=== PATIENT | male | born 1990 | race Caucasian/White ===

== ENCOUNTER 2023-01-15 19:45 | Emergency (ER) | payer SELFPAY ==
--- NOTE | 2023-01-15 20:14 | ERPHSYRPT ---
- History of Present Illness Time Seen by Provider: 01/15/23 20:14 Source: patient, police Exam Limitations: intoxication Patient Subjective Stated Complaint: pt arrived per ems. was found rolling around on the floor at [facility] and ems was called. pt denies seizure activity. denies loc. told ems that he had used meth approx 6 hours ago. told this nurse that he last used meth yesterday. Triage Nursing Assessment: pt alert and oriented x4. pt arrives per ambulance, ambulates from ems cot into room with steady gait noted. respirations nonlabored . pupils equal and reactive. pt moves all extremities without diff. pt restless in room, moving all over bed. Physician History: Patient brought in by police after having an episode in [facility] of shaking. He reported taking an unknown substance earlier that day. Patient reports having a seizure, but he remembers events preceeding the event, no LOC, no incontinence, no post ictal period. Patient denies SI/HI. Hx difficult to obtain due to his condition. Timing/Duration: today Severity of Symptoms-Max: moderate Severity of Symptoms-Current: none Associated Symptoms: denies symptoms Allergies/Adverse Reactions: amoxicillin Allergy (Unknown, Verified 01/15/23 20:09) Home Medications: No Reportable Medications [No Reported Medications] 01/15/23 [History] Hx Tetanus, Diphtheria Vaccination/Date Given: Yes Hx Influenza Vaccination/Date Given: No Hx Pneumococcal Vaccination/Date Given: No Immunizations Up to Date: Yes Travel Risk - International Travel Have you traveled outside of the country in past 3 weeks: No - Coronavirus Screening Are you exhibiting any of the following symptoms?: No Close contact with a COVID-19 positive Pt in past 14-21 Days: No - Vaccine Status Have you recieved a Covid-19 vaccination: Yes 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: [employer] - Past Medical History Other Medical History: carpal tunnel bilat, cubital tunnel lt side - Past Surgical History Past Surgical History: No - Social History Smoking Status: Current every day smoker How long have you smoked: 20 yrs Exposure to second hand smoke: No Drug Use: methamphetamines, heroin Patient Lives Alone: No - Review of Systems All Other Systems: Unable due to condition - Nursing Vital Signs Nursing Vital Signs: Initial Vital Signs Temperature 99.0 F 01/15/23 19:49 Pulse Rate 128 H 01/15/23 19:49 Respiratory Rate 18 01/15/23 19:49 Blood Pressure 134/73 01/15/23 19:49 O2 Sat by Pulse Oximetry 97 01/15/23 19:49 Pain Scale Pain Intensity 4 - Physical Exam General Appearance: anxiety, thin Eyes, Ears, Nose, Throat Exam: normal ENT inspection Neck Exam: normal inspection Respiratory Exam: normal breath sounds, lungs clear, airway intact, No respiratory distress Cardiovascular Exam: normal heart sounds, tachycardia, capillary refill <2 sec Gastrointestinal/Abdominal Exam: soft, normal bowel sounds, No tenderness Extremities Exam: normal inspection, normal range of motion, No edema, No tenderness Current Suicidality: denies suicide plan Neurological Exam: alert, 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, anxious Appearance: disheveled, impaired insight Behavior/Eye Contact/Speech: increased rate of speech, alert & uncooperative, intoxicated appearance Thoughts/Hallucinations: incoherent, No visual hallucinations Skin Exam: normal color, warm, diaphoresis SpO2 Interpretation: normal SpO2: 97 O2 Delivery: Room Air - Course Nursing assessment & vital signs reviewed: Yes EKG Interpreted by Me: RATE (122), Sinus Tach, Left [place] Deviation (No positive deflection in lead I makes less likely), prolonged QT interval (480), NORMAL ST- T Ordered Tests: Active Orders 24 hr Category Date Time Status AMA [Release AMA] OM.NOW Care 01/15/23 22:45 Completed Assistant Director Of Nursing STAT Care 01/15/23 20:15 Completed EKG-ER Only STAT Care 01/15/23 20:14 Completed ACETAMINOPHEN Stat Lab 01/15/23 20:30 Completed CBC W DIFF Stat Lab 01/15/23 20:30 Completed CMP Stat Lab 01/15/23 20:30 Completed ETHYL ALCOHOL Stat Lab 01/15/23 20:30 Completed Lactic Acid Stat Lab 01/15/23 20:14 Completed SALICYLATE Stat Lab 01/15/23 20:30 Completed TROPONIN Q4H Lab 01/15/23 20:30 Completed TSH [TSH, 3RD Generation] Stat Lab 01/15/23 20:30 Completed Urine Triage Profile Stat Lab 01/15/23 21:14 Completed Medication Summary Discontinued Medications Generic Name Dose Route Start Last Admin Trade Name Freq PRN Reason Stop Dose Admin Potassium Chloride 40 meq 01/15/23 21:18 01/15/23 21:32 Potassium Chloride Tab 10 Meq Tab PO 01/15/23 21:19 40 meq STAT ONE Administration Potassium Chloride Confirm 01/15/23 21:31 Potassium Chloride Tab 10 Meq Tab Administered 01/15/23 21:32 Dose 40 meq PO .STK-MED ONE Lab/Rad Data: Laboratory Result Diagrams 01/15/23 20:30 01/15/23 20:30 Laboratory Results 01/15/23 01/15/23 01/15/23 Range/Units 21:14 20:30 20:30 WBC (4.0-10.5) x10^3/uL RBC (4.1-5.6) x10^6/uL Hgb (12.5-18.0) g/dL Hct (42-50) % MCV (78-100) fL MCH (26-32) pg MCHC (32-36) g/dL RDW (11.5-14.0) % Plt Count (150-450) x10^3/uL MPV (7.5-11.0) fL Gran % (36.0-66.0) % Immature Gran % (Auto) (0.00-0.4) % Nucleat RBC Rel Count (0.00-0.1) % Eos # (Auto) (0-0.5) x10^3/uL Immature Gran # (Auto) (0.00-0.03) x10^3u/L Absolute Lymphs (auto) (1.0-4.6) x10^3/uL Absolute Monos (auto) (0.0-1.3) x10^3/uL Absolute Nucleated RBC (0.00-0.01) x10^3u/L Lymphocytes % (24.0-44.0) % Monocytes % (0.0-12.0) % Eosinophils % (0.00-5.0) % Basophils % (0.0-0.4) % Absolute Granulocytes (1.4-6.9) x10^3/uL Basophils # (0-0.4) x10^3/uL Sodium (137-145) mmol/L Potassium (3.5-5.1) mmol/L Chloride (98-107) mmol/L Carbon Dioxide (22-30) mmol/L Anion Gap (5-15) MEQ/L BUN (9-20) mg/dL Creatinine (0.66-1.25) mg/dL Estimated GFR ML/MIN Glucose (74-106) mg/dL Lactic Acid (0.4-2.0) Calcium (8.4-10.2) mg/dL Total Bilirubin (0.2-1.3) mg/dL AST (17-59) U/L ALT (0-50) U/L Alkaline Phosphatase (38-126) U/L Troponin I < 0.012 (0.000-0.034) ng/mL Serum Total Protein (6.3-8.2) g/dL Albumin (3.5-5.0) g/dL Free T4 1.08 (0.78-2.19) ng/dL TSH 3rd Generation (0.47-4.68) mIU/L Salicylates (2-20) mg/dL Urine Opiates Level NEGATIVE (NEGATIVE) Ur Methadone NEGATIVE (NEGATIVE) Acetaminophen (10-30) ug/ml Urine Barbiturates NEGATIVE (NEGATIVE) Ur Phencyclidine (PCP) NEGATIVE (NEGATIVE) Urine Amphetamine POSITIVE (NEGATIVE) U Benzodiazepine Level NEGATIVE (NEGATIVE) Urine Cocaine NEGATIVE (NEGATIVE) Urine Marijuana (THC) POSITIVE (NEGATIVE) Ethyl Alcohol (0-10) mg/dL 01/15/23 01/15/23 01/15/23 Range/Units 20:30 20:30 20:30 WBC 13.2 H (4.0-10.5) x10^3/uL RBC 4.79 (4.1-5.6) x10^6/uL Hgb 13.4 (12.5-18.0) g/dL Hct 40.9 L (42-50) % MCV 85.4 (78-100) fL MCH 28.0 (26-32) pg MCHC 32.8 (32-36) g/dL RDW 12.0 (11.5-14.0) % Plt Count 325 (150-450) x10^3/uL MPV 9.4 (7.5-11.0) fL Gran % 84.4 H (36.0-66.0) % Immature Gran % (Auto) 0.5 H (0.00-0.4) % Nucleat RBC Rel Count 0.0 (0.00-0.1) % Eos # (Auto) 0.04 (0-0.5) x10^3/uL Immature Gran # (Auto) 0.06 H (0.00-0.03) x10^3u/L Absolute Lymphs (auto) 1.33 (1.0-4.6) x10^3/uL Absolute Monos (auto) 0.60 (0.0-1.3) x10^3/uL Absolute Nucleated RBC 0.00 (0.00-0.01) x10^3u/L Lymphocytes % 10.1 L (24.0-44.0) % Monocytes % 4.5 (0.0-12.0) % Eosinophils % 0.3 (0.00-5.0) % Basophils % 0.2 (0.0-0.4) % Absolute Granulocytes 11.13 H (1.4-6.9) x10^3/uL Basophils # 0.03 (0-0.4) x10^3/uL Sodium 142 (137-145) mmol/L Potassium 3.3 L (3.5-5.1) mmol/L Chloride 108 H (98-107) mmol/L Carbon Dioxide 24 (22-30) mmol/L Anion Gap 13.5 (5-15) MEQ/L BUN 12 (9-20) mg/dL Creatinine 1.05 (0.66-1.25) mg/dL Estimated GFR > 60.0 ML/MIN Glucose 118 H (74-106) mg/dL Lactic Acid (0.4-2.0) Calcium 9.1 (8.4-10.2) mg/dL Total Bilirubin 0.40 (0.2-1.3) mg/dL AST 33 (17-59) U/L ALT 28 (0-50) U/L Alkaline Phosphatase 122 (38-126) U/L Troponin I (0.000-0.034) ng/mL Serum Total Protein 7.5 (6.3-8.2) g/dL Albumin 4.4 (3.5-5.0) g/dL Free T4 (0.78-2.19) ng/dL TSH 3rd Generation 0.347 L (0.47-4.68) mIU/L Salicylates < 1.0 L (2-20) mg/dL Urine Opiates Level (NEGATIVE) Ur Methadone (NEGATIVE) Acetaminophen < 10 L (10-30) ug/ml Urine Barbiturates (NEGATIVE) Ur Phencyclidine (PCP) (NEGATIVE) Urine Amphetamine (NEGATIVE) U Benzodiazepine Level (NEGATIVE) Urine Cocaine (NEGATIVE) Urine Marijuana (THC) (NEGATIVE) Ethyl Alcohol < 10 (0-10) mg/dL 01/15/23 Range/Units 20:14 WBC (4.0-10.5) x10^3/uL RBC (4.1-5.6) x10^6/uL Hgb (12.5-18.0) g/dL Hct (42-50) % MCV (78-100) fL MCH (26-32) pg MCHC (32-36) g/dL RDW (11.5-14.0) % Plt Count (150-450) x10^3/uL MPV (7.5-11.0) fL Gran % (36.0-66.0) % Immature Gran % (Auto) (0.00-0.4) % Nucleat RBC Rel Count (0.00-0.1) % Eos # (Auto) (0-0.5) x10^3/uL Immature Gran # (Auto) (0.00-0.03) x10^3u/L Absolute Lymphs (auto) (1.0-4.6) x10^3/uL Absolute Monos (auto) (0.0-1.3) x10^3/uL Absolute Nucleated RBC (0.00-0.01) x10^3u/L Lymphocytes % (24.0-44.0) % Monocytes % (0.0-12.0) % Eosinophils % (0.00-5.0) % Basophils % (0.0-0.4) % Absolute Granulocytes (1.4-6.9) x10^3/uL Basophils # (0-0.4) x10^3/uL Sodium (137-145) mmol/L Potassium (3.5-5.1) mmol/L Chloride (98-107) mmol/L Carbon Dioxide (22-30) mmol/L Anion Gap (5-15) MEQ/L BUN (9-20) mg/dL Creatinine (0.66-1.25) mg/dL Estimated GFR ML/MIN Glucose (74-106) mg/dL Lactic Acid 1.6 (0.4-2.0) Calcium (8.4-10.2) mg/dL Total Bilirubin (0.2-1.3) mg/dL AST (17-59) U/L ALT (0-50) U/L Alkaline Phosphatase (38-126) U/L Troponin I (0.000-0.034) ng/mL Serum Total Protein (6.3-8.2) g/dL Albumin (3.5-5.0) g/dL Free T4 (0.78-2.19) ng/dL TSH 3rd Generation (0.47-4.68) mIU/L Salicylates (2-20) mg/dL Urine Opiates Level (NEGATIVE) Ur Methadone (NEGATIVE) Acetaminophen (10-30) ug/ml Urine Barbiturates (NEGATIVE) Ur Phencyclidine (PCP) (NEGATIVE) Urine Amphetamine (NEGATIVE) U Benzodiazepine Level (NEGATIVE) Urine Cocaine (NEGATIVE) Urine Marijuana (THC) (NEGATIVE) Ethyl Alcohol (0-10) mg/dL - Progress Progress: unchanged Progress Note: Lab results K 3.3, 40meq kcl given TSH 0.347, T4 1.08 UDS positive for amphetamines and marijuana Patient eloped prior to being d/c'd Medical Desision Making - Diagnostic Testing Diagnostic test were ordered, analyzed, and reviewed by me: Yes Radiological Interpretation: Interpreted by me, Reviewed by me - Risk of complications The pt has a mod risk of morbidity or mortality based on: Need for prescription drug management - Departure Departure Disposition: AMA (eloped) Clinical Impression: Hypokalemia, Methamphetamine abuse, Marijuana abuse Condition: Good Critical Care Time: No Referrals: DOCTOR,NO FAMILY [Primary Care Provider] - Follow up/PCP as directed Instructions: Drug Misuse and Addiction (DC)
[2023-01-15 20:33] LABS: Absolute Neutrophil Ct (ANC) 11.13 x10^3/uL (1.4-6.9); BASOPHIL % 0.2 % (0.0-0.4); Basophil (Absolute #) 0.03 x10^3/uL (0-0.4); Eosinophil % 0.3 % (0.00-5.0); Eosinophil (Absolute #) 0.04 x10^3/uL (0-0.5); Hematocrit 40.9 % (42-50); Hemoglobin 13.4 g/dL (12.5-18.0); IMMATURE GRAN # 0.06 x10^3u/L (0.00-0.03); IMMATURE GRAN % 0.5 % (0.00-0.4); Lymphocyte (Absolute #) 1.33 x10^3/uL (1.0-4.6); Lymphocytes % 10.1 % (24.0-44.0); Mean Cell Volume 85.4 fL (78-100); Mean Corpuscular Hgb Concent. 32.8 g/dL (32-36); Mean Platelet Volume 9.4 fL (7.5-11.0); Monocytes % 4.5 % (0.0-12.0); Neutrophil % 84.4 % (36.0-66.0); Platelet Count 325 x10^3/uL (150-450); Red Blood Count 4.79 x10^6/uL (4.1-5.6); White Blood Count 13.2 x10^3/uL (4.0-10.5)
[2023-01-15 20:53] LABS: ACETAMINOPHEN < 10 ug/ml (10-30); ALBUMIN 4.4 g/dL (3.5-5.0); ALKALINE PHOSPHATASE 122 U/L (38-126); ANION GAP 13.5 MEQ/L (5-15); BLOOD UREA NITROGEN 12 mg/dL (9-20); CHLORIDE 108 mmol/L (98-107); Calcium 9.1 mg/dL (8.4-10.2); Carbon Dioxide 24 mmol/L (22-30); Creatinine 1 1.05 mg/dL (0.66-1.25); EST GLOMERULAR FILTRATION RATE > 60.0 ML/MIN; ETHYL ALCOHOL < 10 mg/dL (0-10); Glucose 118 mg/dL (74-106); Potassium 3.3 mmol/L (3.5-5.1); SALICYLATE < 1.0 mg/dL (2-20); SGOT/AST 33 U/L (17-59); SGPT/ALT 28 U/L (0-50); SODIUM 142 mmol/L (137-145); Total Protein 7.5 g/dL (6.3-8.2)
[2023-01-15] MEDS ORDERED: Klor Con PO ONE ×2 (21:18→21:31)
[2023-01-15 21:37] VITALS: O2SAT 97
[2023-01-15 21:39] LABS: Barbiturate,Urine NEGATIVE (NEGATIVE); Benzodiazepine,Urine NEGATIVE (NEGATIVE); Cocaine,Urine NEGATIVE (NEGATIVE); Methadone,Urine NEGATIVE (NEGATIVE); Opiate,Urine NEGATIVE (NEGATIVE); PCP,Urine NEGATIVE (NEGATIVE); THC,Urine POSITIVE (NEGATIVE)
[2023-01-15 21:52] LABS: Amphetamine,Urine POSITIVE (NEGATIVE)
[2023-01-15 22:12] VITALS: BP 110/71; PULSE 123
== END 2023-01-15 22:45 | disposition left against medical advice (07) ==
LOC: ED 19:45
DX: F15.10 Other stimulant abuse, uncomplicated (principal); F12.10 Cannabis abuse, uncomplicated; E87.6 Hypokalemia; Z72.0 Tobacco use
CPT/HCPCS: 36415; 80053; 80143; 80179; 80307; 82077; 83605; 84439; 84443; 84484; 85025; 93005; 93041; 99283; A9270-GY